=== PATIENT | female | born 1980 | race Caucasian/White ===

== ENCOUNTER 2017-03-22 14:28 | Emergency (ER) | payer OTHER ==
[~2017-03-22] VITALS: Ht 167.6 cm; Wt 114.8 kg
[~2017-03-22 14:28] MED LIST: AMBIEN5 MG PO; AVINZA30 MG PO; CATAPRES0.1 MG PO; DILAUDID2 MG PO; DILAUDID8 MG PO; FLINTSTONES1 EACH PO; FLOMAX0.4 MG PO; Flintstones PO; K-DUR20 MEQ PO; LYRICA150 MG PO; LYRICA75 MG PO; METHADONE; METHADONE PO; METHADONE10 MG/1 M1 PO; MORPHINE SULFAT30 M7 PO; OXYCODONE HCL5 MG PO; PERCOCET 5/31 TABLET PO; PERCOCET 7.51 TABLET PO; POTASSIUM CHLO20 ME1 PO; PRILOSEC40 MG PO; SEROQUEL12.5 MG PO; TRAZODONE HCL50 MG PO; ZOFRAN4 MG PO; ZOLOFT100 MG PO; Zantac PO; Zoloft PO
[2017-03-22 15:23] LABS: CHLORIDE 102 mEq/L (99-109); POTASSIUM 4.2 mEq/L (3.7-5.4); SODIUM 141 mEq/L (136-147)
[2017-03-22 15:25] LABS: GLUCOSE 110 mg/dL (70-99)
[2017-03-22 15:26] LABS: ANION GAP 11 MEQ/L (2-14)
[2017-03-22 15:27] LABS: TOTAL BILIRUBIN 0.4 mg/dL (0.0-1.0)
[2017-03-22 15:28] LABS: ALKALINE PHOSPHATASE 95 IU/L (3-129); HEMATOCRIT 32.3 % (36.0-46.0); MCH 20.8 PG (29.0-34.0); MCV 69.3 FL (83-99); MEAN PLAT.VOLUME 10.9 uM^3 (9.5-12.4); PLATELET COUNT 288 K/uL (156-360); RBC DIS.WIDTH-CV 17.2 % (11.8-14.6); RBC DIS.WIDTH-SD 42.4 % (39-53); RED BLOOD COUNT 4.66 M/uL (3.80-5.20); WHITE BLOOD COUNT 7.3 K/uL (4.1-10.2)
[2017-03-22 15:29] LABS: GFR ESTIMATE (CALCULATED) > 59 mL/min/
[2017-03-22 15:30] LABS: UREA NITROGEN (BUN) 13 mg/dL (9-23)
[2017-03-22 15:37] LABS: TROP-I INTERPRETATION NEGATIVE; TROPONIN-I < 0.01 ng/mL (0.0-0.30)
[2017-03-22 16:44] LABS: ADD MIUA? YES; BILIRUBIN NEGATIVE; BLOOD MODERATE; COLOR YELLOW ((YELLOW)); GLUCOSE (STRIP) NEGATIVE; KETONES NEGATIVE; LEUKOCYTES NEGATIVE; NITRITE NEGATIVE; PROTEIN (STRIP) NEGATIVE; SPECIFIC GRAVITY 1.021 (1.000-1.030)
[2017-03-22 16:47] LABS: INTERNAL CONTROL VALID? YES
[2017-03-22 17:01] LABS: BACTERIA NONE SEEN /HPF; CALCIUM OXALATE CRYSTALS 1+ /HPF; EPITHELIAL CELLS 1+ /HPF; MUCUS TRACE /LPF; RED BLOOD CELLS TNTC /HPF (0-5); UCUL ADDED? YES; WHITE BLOOD CELLS 0-5 /HPF (0-5)
[2017-03-22 18:29] VITALS: BP 125/69
== END 2017-03-22 18:33 | disposition home or self-care (01) ==
LOC: EME 14:28
PROVIDERS: Emergency Medicine
DX: R07.9 Chest pain, unspecified (principal); R31.9 Hematuria, unspecified; Z87.442 Personal history of urinary calculi; F11.20 Opioid dependence, uncomplicated; Z88.8 Allergy status to other drugs, medicaments and biological substances; K21.9 Gastro-esophageal reflux disease without esophagitis; Z98.1 Arthrodesis status
CPT/HCPCS: 71275; 80053; 81003; 84484; 84703; 85027; 87086; 93005; 99281; 99285

== ENCOUNTER 2017-10-03 10:20 | Emergency (ER) | payer OTHER ==
[~2017-10-03] VITALS: Ht 167.6 cm; Wt 112.7 kg
[2017-10-03 10:57] LABS: HEMATOCRIT 30.8 % (36.0-46.0); HEMOGLOBIN 9.3 G/DL (11.9-15.5); MCH 20.5 PG (29.0-34.0); MCHC 30.2 G/DL (30.0-36.0); MCV 67.8 FL (83-99); PLATELET COUNT 273 K/uL (156-360); RBC DIS.WIDTH-CV 18.3 % (11.8-14.6); RBC DIS.WIDTH-SD 44.6 % (39-53); RED BLOOD COUNT 4.54 M/uL (3.80-5.20); WHITE BLOOD COUNT 7.8 K/uL (4.1-10.2)
[2017-10-03 11:01] LABS: CHLORIDE 106 mEq/L (99-109); POTASSIUM 4.8 mEq/L (3.7-5.4); SODIUM 141 mEq/L (136-147)
[2017-10-03 11:02] LABS: GLUCOSE 99 mg/dL (70-99)
[2017-10-03 11:06] LABS: CREATININE 1.2 mg/dL (0.6-1.3); GFR ESTIMATE (CALCULATED) 54 mL/min/
[2017-10-03 11:07] LABS: UREA NITROGEN (BUN) 13 mg/dL (9-23)
[2017-10-03 11:20] LABS: APPEARANCE SL.HAZY ((CLEAR)); BILIRUBIN NEGATIVE; BLOOD NEGATIVE; COLOR YELLOW ((YELLOW)); GLUCOSE (STRIP) NEGATIVE; KETONES NEGATIVE; LEUKOCYTES SMALL; NITRITE NEGATIVE; PROTEIN (STRIP) NEGATIVE; SPECIFIC GRAVITY 1.018 (1.000-1.030)
[2017-10-03 11:28] LABS: QUANTITATIVE HCG < 4.0 MIU/ML
[2017-10-03 11:31] LABS: BACTERIA RARE /HPF; EPITHELIAL CELLS 1+ /HPF; MUCUS TRACE /LPF; UCUL ADDED? YES; WHITE BLOOD CELLS 20-30 /HPF (0-5)
[2017-10-03] MEDS ORDERED: PERCOCET 5/31 TABLET PO (13:18)
[2017-10-03] MEDS ORDERED: ZOFRAN4 MG PO (13:18)
[2017-10-03] MEDS ORDERED: BACTRIM,SEPT1 TABLET PO (13:18)
[2017-10-03] MEDS ORDERED: FLOMAX0.4 MG PO (13:18)
[2017-10-03 13:44] VITALS: BP 137/91
== END 2017-10-03 13:48 | disposition home or self-care (01) ==
LOC: EXP 10:20 → EME 10:20 → EXP 13:48
DX: N20.0 Calculus of kidney (principal); Z87.442 Personal history of urinary calculi; G43.909 Migraine, unspecified, not intractable, without status migrainosus; G89.29 Other chronic pain; M54.9 Dorsalgia, unspecified; M79.606 Pain in leg, unspecified; Z98.1 Arthrodesis status; K21.9 Gastro-esophageal reflux disease without esophagitis; M79.7 Fibromyalgia; Z88.8 Allergy status to other drugs, medicaments and biological substances; Z88.6 Allergy status to analgesic agent; Z79.891 Long term (current) use of opiate analgesic
CPT/HCPCS: 74176; 80048; 81003; 84702; 85027; 87086; 99281; 99284; J3010